=== PATIENT | male | born 1995 | race Caucasian/White ===

== ENCOUNTER 2023-03-19 15:11 | Emergency (ER) | payer BC, SELFPAY ==
--- NOTE | 2023-03-19 15:23 | ED.NECK ---
HPI - Neck Pain/Injury General Chief Complaint: Neck Pain/Injury Stated Complaint: sharp pain right side of neck/throat Source: patient and RN notes reviewed History of Present Illness HPI Narrative: 28-year-old male presents to urgent care with complaints of discomfort in his right side neck and throat. Patient states he 1st noticed this last night. Patient states he noticed a swollen lymph node to his right neck area night that is tender. Patient states pain has radiated to his right ear. Denies any sore throat, fevers, chills, chest pain, shortness of breath, or vomiting. Denies any runny nose or congestion. Related Data Home Medications Medication Instructions Recorded Confirmed No Home Medications 03/19/23 03/19/23 Allergies Allergy/AdvReac Type Severity Reaction Status Date / Time No Known Allergies Allergy Verified 03/19/23 15:36 Review of Systems Review of Systems: Pertinent positives and pertinent negatives per HPI. PMFSH Comments At the time of my signature, I reviewed and agree with the nursing past medical, surgical, social, and family history. There is no relevant family history pertinent to the patient complaint. Exam Narrative: GENERAL: This is a well-nourished, well-developed patient, in no apparent distress. HEAD: normocephalic, atraumatic. EYES: Sclera clear/white. Vision is grossly intact. EARS: External ears normal, auditory canals clear and without drainage, TMs normal without perforation. Hearing grossly intact. NOSE: External nose normal with no obvious nasal discharge, nares without redness, no rhinorrhea. THROAT: Mucous membranes moist, posterior pharynx clear. NECK: Neck supple, right anterior cervical lymphadenopathy CARDIOVASCULAR: Regular rate RESPIRATORY: No respiratory distress SKIN: warm, intact with no suspicious lesions or rash, good texture and turgor. NEURO: awake, alert, and oriented to person, place and time. There were no obvious focal neurologic abnormalities. Course Course Level of Care: Express Care Visit Vital Signs Vital signs: Vital Signs Temperature 97.4 F L 03/19/23 15:28 Pulse Rate 64 03/19/23 15:28 Respiratory Rate 16 03/19/23 15:28 Blood Pressure 112/54 L 03/19/23 15:28 Pulse Oximetry 99 03/19/23 15:28 Oxygen Delivery Room Air 03/19/23 15:28 Temperature 97.4 F L 06/23/23 15:37 Pulse Rate 64 03/19/23 15:37 Respiratory Rate 16 03/19/23 15:37 Blood Pressure 112/54 L 03/19/23 15:37 Pulse Oximetry 99 03/19/23 15:37 Oxygen Delivery Room Air 03/19/23 15:37 Reviewed MDM - Neck Pain/Injury MDM Narrative Medical decision making narrative: Drink plenty of water and follow up with PCP next week if symptoms persist. Increase your Vitamin C as well. Differential Diagnosis Differential diagnosis: Likely other (strep throat, AOM, lymphadenopathy ) Lab Data Labs: Strep Screen Presumptive Negative *(Reference Range: Negative)* Critical Care Time Critical Care Time Critical Care Time: No Discharge Plan Discharge Clinical Impression: Lymphadenopathy Patient Disposition: Home, Self-Care Condition: Stable Instructions: Lymphadenopathy (ED) Additional Instructions: Drink plenty of water and follow up with PCP next week if symptoms persist. Increase your Vitamin C as well. Prescriptions: No Action No Home Medications Follow-up/Referrals: Harms,Marco Antonio Colindres M.D. [Primary Care Provider] - Time of Disposition: 15:52
[2023-03-19 15:28] VITALS: BP 112/54; PULSE 64; RESP 16; TEMP 36.3; O2SAT 99
[2023-03-19 15:37] VITALS: BP 112/54; PULSE 64; RESP 16; TEMP 36.3; O2SAT 99
== END 2023-03-19 15:53 | disposition home or self-care (01) ==
PROVIDERS: Emergency Provider Nurse Practitioner Family; PCP Family Medicine
DX: R59.1 Generalized enlarged lymph nodes (principal)
CPT/HCPCS: 87081; 87880; 99203; G0463